=== PATIENT | male | born 1945 | race Caucasian/White ===

== ENCOUNTER 2022-07-03 05:56 | Day surgery (SDC) | payer MEDICARE ==
[2022-06-30 12:02] LABS: BASOPHILS # (AUTO) 0.1 X10'3 (0-0.2); BASOPHILS % (AUTO) 0.8 % (0-1); EOSINOPHILS # (AUTO) 0.3 X10'3 (0-0.9); EOSINOPHILS % (AUTO) 3.3 % (0-6); HEMATOCRIT 41.2 % (42.0-52.0); HEMOGLOBIN 13.9 g/dl (14.0-17.9); LYMPHOCYTES # (AUTO) 1.3 X10'3 (1.1-4.8); LYMPHOCYTES % (AUTO) 14.3 % (21-51); MEAN CORPUSCULAR HEMOGLOBIN 30.6 PG (27.0-31.0); MEAN CORPUSCULAR HGB CONC 33.6 g/dL (33.0-36.5); MEAN CORPUSCULAR VOLUME 90.8 FL (78-98); MEAN PLATELET VOLUME 6.9 FL (7.4-10.4); MONOCYTES # (AUTO) 1.1 X10'3 (0-0.9); MONOCYTES % (AUTO) 12.3 % (2-12); NEUTROPHILS # (AUTO) 6.2 X10'3 (1.8-7.7); NEUTROPHILS % (AUTO) 69.3 % (42-75); PLATELET COUNT 299 X10'3 (140-440); RED BLOOD COUNT 4.54 X10'6 (4.70-6.10); RED CELL DISTRIBUTION WIDTH 13.5 % (11.5-14.5)
[2022-06-30 12:10] LABS: ALBUMIN 3.8 G/DL (3.4-5.0); ANION GAP 6 (8-16); APTT 29 SECONDS (22-32); BLOOD UREA NITROGEN 21 MG/DL (7-18); BUN/CREATININE RATIO 14.5 (5.4-32.0); CHLORIDE 104 MMOL/L (99-107); CREATININE 1.45 MG/DL (0.60-1.10); GLUCOSE 88 MG/DL (70-104); POTASSIUM 4.4 MMOL/L (3.5-5.1); SODIUM 139 MMOL/L (135-145); TOTAL CARBON DIOXIDE 29.2 MMOL/L (24-32); eGFR 47 ML/MIN
[~2022-07-03] VITALS: Ht 172.7 cm; Wt 98.1 kg
[2022-07-03] VITALS (11 sets, daily range): BP systolic 109–157; BP diastolic 51–73
[~2022-07-03 05:56] MED LIST: ASCO500C17 PO; ASPI81TA52 PO; BETA1TAB19 PO; CHOL20002 PO; LACT1CAP75 PO; LOP12.5T PO; MULT-1085 PO; OMEG-166 PO; ROSU20TA2 PO; TURM500C4 PO; VITA-268 PO; ZINC50TA PO
[2022-07-03] MEDS ORDERED: acetylcysteine 200 MG/ml 4ml vial PO PRN (06:30)
[2022-07-03] MEDS ORDERED: diphenhydrAMINE 25mg capsule PO PRN (06:30)
[2022-07-03] MEDS ORDERED: sodium bicarbonate 1meq/ml syr 150 ML in dextrose 5%-water 850 ML IV ONE (06:30)
[2022-07-03] MEDS ORDERED: normal saline 1,000 ML IV SCH (06:30)
[2022-07-03] MEDS ORDERED: LORazepam 0.5 MG tablet PO PRN (06:30)
[2022-07-03] MEDS ORDERED: heparin 1,000unit/ml 10ml vial 10 ML ONE (07:38)
[2022-07-03] MEDS ORDERED: iohexol 350MG/ML 100ml bottle IV ONE (07:38)
[2022-07-03] MEDS ORDERED: heparin 25,000 UNIT/250ml bag 250 ML IV ONE (07:38)
[2022-07-03] MEDS ORDERED: fentaNYL/PF 50MCG/1 ML 2ML syringe ONE (07:38)
[2022-07-03] MEDS ORDERED: verapamil 2.5 mg/ml inj IV ONE (07:38)
[2022-07-03] MEDS ORDERED: LIDOcaine 1% 30ml preserv. free vial ONE (07:38)
[2022-07-03] MEDS ORDERED: midazolam 1 mg/ML 2ml injection ONE (07:38)
[2022-07-03] MEDS ORDERED: nitroGLYCERIN-Tridil 50MG/D5W 250 ML IV ONE (07:39)
[2022-07-03] MEDS ORDERED: CLOP-32 PO (08:53)
[2022-07-03] MEDS ORDERED: clopidogrel 300mg tablet ONE (09:18)
[2022-07-03] MEDS ORDERED: clopidogrel 300mg tablet PO ONE (10:00)
--- NOTE | 2022-07-03 10:00 | NUR ---
Heparin drip off
[2022-07-03] MEDS ORDERED: acetylcysteine 200 MG/ml 4ml vial PO ONE ×2 (11:00→14:00)
[2022-07-04] MEDS ORDERED: clopidogrel 75mg tablet PO SCH (08:00)
== END 2022-07-03 15:00 | disposition home or self-care (01) ==
LOC: SSTAY O 05:56
PROVIDERS: ATTEND Internal Medicine Cardiovascular Disease
DX: R94.39 Abnormal result of other cardiovascular function study (principal); I25.10 Atherosclerotic heart disease of native coronary artery without angina pectoris; I35.0 Nonrheumatic aortic (valve) stenosis; I10 Essential (primary) hypertension; E78.5 Hyperlipidemia, unspecified; L57.0 Actinic keratosis; G47.33 Obstructive sleep apnea (adult) (pediatric); E66.9 Obesity, unspecified; Z68.32 Body mass index [BMI] 32.0-32.9, adult; Z80.8 Family history of malignant neoplasm of other organs or systems; Z82.49 Family history of ischemic heart disease and other diseases of the circulatory system; Z95.0 Presence of cardiac pacemaker; Z88.0 Allergy status to penicillin; Z88.2 Allergy status to sulfonamides; Z88.1 Allergy status to other antibiotic agents; Z79.82 Long term (current) use of aspirin; Z79.899 Other long term (current) drug therapy; Z87.891 Personal history of nicotine dependence
CPT/HCPCS: 36415; 76937; 80048; 85025; 85347; 85610; 85730; 93005; 93454; 93571; 99152; 99153; C1725; C1751; C1769; C1874; C1894; C9600; J1644; J2250; J3010; J3490; J7030; J7070; Q0163; Q9967; A6258; A6402

== ENCOUNTER 2024-07-31 05:28 | Day surgery (SDC) | payer MEDICARE ==
[2024-07-24 15:28] LABS: BASOPHILS % (AUTO) 0.6 % (0-1); EOSINOPHILS # (AUTO) 0.3 X10'3 (0-0.9); EOSINOPHILS % (AUTO) 3.2 % (0-6); LYMPHOCYTES # (AUTO) 1.5 X10'3 (1.1-4.8); MEAN CORPUSCULAR HEMOGLOBIN 30.9 PG (27.0-31.0); MEAN CORPUSCULAR HGB CONC 33.4 g/dL (33.0-36.5); MEAN CORPUSCULAR VOLUME 92.3 FL (78-98); MEAN PLATELET VOLUME 7.5 FL (7.4-10.4); MONOCYTES # (AUTO) 0.9 X10'3 (0-0.9); NEUTROPHILS # (AUTO) 5.5 X10'3 (1.8-7.7); NEUTROPHILS % (AUTO) 67.2 % (42-75); PRE OP HEMATOCRIT 41.8 % (42.0-52.0); PRE OP PLATELET COUNT 245 X10'3 (140-440); PRE OP WHITE BLOOD COUNT 8.2 10'3 (4.8-10.8); RED BLOOD COUNT 4.53 X10'6 (4.70-6.10); RED CELL DISTRIBUTION WIDTH 14.6 % (11.5-14.5)
[2024-07-24 15:43] LABS: ALBUMIN 3.8 G/DL (3.4-5.0); ALBUMIN/GLOBULIN RATIO 1.1 (1.1-1.5); ALKALINE PHOSPHATASE 82 IU/L (46-116); BLOOD UREA NITROGEN 18 MG/DL (7-18); BUN/CREATININE RATIO 13.7 (10.0-20.0); CALCIUM 8.8 MG/DL (8.5-10.1); CHLORIDE 106 MMOL/L (99-107); CREATININE 1.31 MG/DL (0.60-1.10); PRE OP ALT 39 U/L (30-65); PRE OP ANION GAP 5 (8-16); PRE OP AST 17 U/L (10-37); PRE OP BILIRUB, TOTAL 0.3 MG/DL (0.0-1.0); PRE OP GLUCOSE 108 MG/DL (70-104); PRE OP POTASSIUM 4.3 MMOL/L (3.4-5.1); PRE OP SODIUM 143 MMOL/L (135-145); TOTAL CARBON DIOXIDE 32.1 MMOL/L (24-32); TOTAL PROTEIN 7.4 G/DL (6.4-8.2); eGFR 53 ML/MIN
[2024-07-31] VITALS (14 sets, daily range): BP systolic 97–149; BP diastolic 56–84; PULSE 60–82; RESP 11–21; TEMP 96.7; O2SAT 92–98
[~2024-07-31] VITALS: Ht 172.7 cm; Wt 98.7 kg
[~2024-07-31 05:28] MED LIST changes: -ASCO500C17 PO; +CAYE450C PO; -TURM500C4 PO
[2024-07-31] MEDS ORDERED: VANCOMYCIN 1,500MG inj. 1,500 MG in normal saline 500ml IV soln 300 ML IV ONE (05:30)
[2024-07-31] MEDS: famotidine 20mg tablet PO ONE (06:04)
[2024-07-31] MEDS: tamsulosin 0.4mg capsule PO ONE (06:04)
[2024-07-31] MEDS: VANCOMYCIN/WATER FOR INJ (PEG) 1.5GM/300 ML IVPB IV ONE (06:05)
[2024-07-31] MEDS: ringers solution, lacted 1,000 ML IV SCH (06:05)
[2024-07-31] MEDS: DOCUMENT DATE & TIME OF BETA-BLOCKER PO ONE (06:11)
[2024-07-31] MEDS ORDERED: BUPIVAcaine 2.5mg/ml inj 50ml vial (contains preservative) ONE (06:54)
[2024-07-31] MEDS ORDERED: LIDOcaine 1% 30ml preserv. free vial ONE (06:54)
[2024-07-31] MEDS ORDERED: sevoflurane 250ml liquid IH ONE (07:14)
[2024-07-31] MEDS ORDERED: fentaNYL/PF 50MCG/1 ML 2ML syringe ONE (07:23)
[2024-07-31] MEDS ORDERED: midazolam 1 mg/ML 2ml injection ONE (07:23)
[2024-07-31] MEDS ORDERED: dexamethasone sod phosphate 4mg/ml inj. ONE (07:30)
[2024-07-31] MEDS ORDERED: LIDOcaine 2% (20mg/ml) 5ml vial ONE (07:30)
[2024-07-31] MEDS ORDERED: propofol inj 20 ML IV ONE (07:30)
[2024-07-31] MEDS ORDERED: rocuronium 10mg/ml inj IV ONE (07:30)
[2024-07-31] MEDS ORDERED: ondansetron/PF 4mg/2ml inj ONE (07:30)
[2024-07-31] MEDS ORDERED: acetaminophen 1,000mg/100ml IV 100 ML IV ONE (07:31)
[2024-07-31] MEDS ORDERED: ePHEDrine 50MG/ML INJ. ONE (07:38)
[2024-07-31] MEDS ORDERED: morphine 2 MG/ML inj. syringe IV PRN (08:00)
[2024-07-31] MEDS ORDERED: enalaprilat 1.25mg/ml 2ml vial IV PRN (08:00)
[2024-07-31] MEDS ORDERED: morphine 4 MG/ML inj SYRINge IV PRN (08:00)
[2024-07-31] MEDS ORDERED: fentaNYL/PF 50MCG/1 ML 2ML syringe IV PRN ×2 (08:00)
[2024-07-31] MEDS ORDERED: ondansetron/PF 4mg/2ml inj IV PRN (08:00)
[2024-07-31] MEDS ORDERED: ringers solution, lacted 1,000 ML IV SCH (08:00)
[2024-07-31] MEDS ORDERED: hydrALAZINE 20mg/ml inj. IV PRN (08:00)
[2024-07-31] MEDS ORDERED: neostigmine methylsulfate 1 MG/ML 10ml vial ONE (08:10)
[2024-07-31] MEDS ORDERED: glycopyrrolate 0.2mg/ml inj ONE (08:10)
[2024-07-31] MEDS: HYDROcodone/acetaminophen 5mg/325mg tablet PO PRN (10:45)
== END 2024-07-31 12:09 | disposition home or self-care (01) ==
LOC: PAS 05:28
PROVIDERS: ATTEND Surgery
DX: K40.90 Unilateral inguinal hernia, without obstruction or gangrene, not specified as recurrent (principal); K42.9 Umbilical hernia without obstruction or gangrene; I10 Essential (primary) hypertension; I25.10 Atherosclerotic heart disease of native coronary artery without angina pectoris; E78.5 Hyperlipidemia, unspecified; E66.9 Obesity, unspecified; G47.33 Obstructive sleep apnea (adult) (pediatric); Z95.0 Presence of cardiac pacemaker; Z95.818 Presence of other cardiac implants and grafts; Z87.891 Personal history of nicotine dependence; Z88.0 Allergy status to penicillin; Z88.1 Allergy status to other antibiotic agents; Z79.82 Long term (current) use of aspirin; Z79.899 Other long term (current) drug therapy; Z82.3 Family history of stroke; Z80.0 Family history of malignant neoplasm of digestive organs; Z82.49 Family history of ischemic heart disease and other diseases of the circulatory system
CPT/HCPCS: 36415; 49591; 49650; 80053; 82948; 85025; A4215; A4618; C1781; J0131; J1100; J2003; J2250; J2405; J2704; J2710; J3010; J3372; J3490; J7030; J7120; Z7506; Z7508; Z7512; Z7610; J3370; J7040